=== PATIENT | male | born 1960 | race Caucasian/White ===

== ENCOUNTER 2016-12-07 22:01 | Emergency (ER) | payer MEDICARE, OTHER ==
--- NOTE | ~2016-12-07 | EKG ---
PATIENT: ASTRID CHAPMAN UNIT #: [id number] Ventricular Rate: 119 BPM Atrial Rate: 119 BPM P-R Interval: 126 ms QRS Duration: 78 ms Q-T Interval: 334 ms QTC Calculation(Bezet): 469 ms P Ben Wheeler: 54 degrees Calculated R Ben Wheeler: 56 degrees Calculated T Ben Wheeler: 38 degrees Diagnosis Line: Sinus tachycardia Diagnosis Line: Otherwise normal ECG Diagnosis Line: No previous ECGs available Diagnosis Line: Confirmed by SHAKIR CROWDER MD ([id number]) on 12/09/2016 Diagnosis Line: 2:15:00 PM INTERPRETING MD: LAKESHA MCMAHON
--- NOTE | ~2016-12-07 | CR72 ---
[facility] A Service of [facility] & [facility] RADIOLOGY TEXT RESULTS PATIENT: ASTRID CHAPMAN LOCATION: [facility] : 60 UNIT #: [id number] AGE: [address]: Georgie Allen MD SEX: M ORDER DR: [id number] [facility] [address] [place], [place] [address] [id number] MR#: [id number] Acc #: [id number] NAME: ASTRID CHAPMAN : 1960 SEX: M STUDY DATE/TIME: 12/07/2016 20:39 UNIT: [facility] ROOM: STUDY DESCRIPTION: CR Chest Single View Portable Attending Physician: Georgie Allen M.D. Ordering Physician: Rudy Palomares M.D. Primary Care Physician: Primary Care Physician No MEDICAL IMAGING REPORT This report is preliminary unless electronic signature is present EXAM Portable chest, 12/07/2016 HISTORY Shortness of air, cough, congestion and vomiting today. FINDINGS Mild elevation of the right hemidiaphragm. Low lung volumes. Dxvp-jb-okpuxtji bibasilar fibrosis or linear atelectasis. No airspace infiltrates. No pleural effusions. Lower cervical fusion hardware. IMPRESSION 1. No acute findings. No active disease. 2. Pbyv-yy-xirqaxzl elevation of the right hemidiaphragm. 3. Bibasilar linear atelectasis or scarring. Dictated by... Carlos Medina M.D. THIS IS AN ELECTRONICALLY VERIFIED REPORT Carlos Medina M.D. at 12/07/2016 11:29 PM KEKE/blake TD: 12/07/2016 22:38 JOB #: [id number] MEDICAL IMAGING REPORT Page 1 of 1 COPY
[2016-12-07 20:54] LABS: INFLUENZA A NEG (NEG); INFLUENZA B NEG (NEG)
[2016-12-07 21:05] LABS: BASOPHIL% 0.8 % (0-2.5); EOSINOPHIL# 0.1 X10e3 (0-0.7); EOSINOPHIL% 1.2 % (0.0-7.0); HEMATOCRIT 38.8 % (38.0-50.0); HEMOGLOBIN 12.4 gm/dL (13.0-16.0); LYMPHOCYTE# 0.5 X10e3 (1.0-3.5); LYMPHOCYTE% 7.5 % (17.0-45.0); MEAN CELL VOLUME 78.9 FL (83-96); MEAN CORPUSCULAR HEMOGLOBIN 25.2 PG (28-34); MEAN PLATELET VOLUME 7.6 FL (6.5-11.5); MONOCYTE# 1.2 X10e3 (0-1.0); MONOCYTE% 17.8 % (3.0-12.0); NEUTROPHIL# 4.8 X10e3 (1.5-7.1); NEUTROPHIL% 72.7 % (40-75); PLATELET COUNT 232 X10e3 (140-420); RED BLOOD COUNT 4.92 X10e (3.90-5.60); RED CELL DISTRIBUTION WIDTH 17.2 % (11.0-15.5); WHITE BLOOD COUNT 6.6 X10e3 (4.0-10.5)
[2016-12-07 21:08] LABS: DIFF IND NO
[2016-12-07 21:28] LABS: ALBUMIN SERUM 4.3 g/dL (3.5-5.0); BILIRUBIN, DIRECT 0.1 mg/dL (0.0-0.2); BILIRUBIN,INDIRECT 0.4 mg/dL (0.0-0.9); BILIRUBIN,TOTAL 0.5 mg/dL (0.2-2.0); CALCIUM SERUM 9.3 mg/dL (8.4-10.2); GLOM FILT RATE Estimated 83.8 mL/min (>60); POTASSIUM 3.5 mmol/L (3.5-5.1); PROTEIN TOTAL SERUM 7.6 g/dL (6.0-8.3)
[2016-12-07 21:32] LABS: POC - CKMB 4.5 ng/mL (0.0-7.9); POC - TROPONIN <0.05 ng/mL (<=0.05)
[~2016-12-07 22:01] MED LIST: ACETAMINOPHEN325 MG PO; ALB/IPRATROPIUM/1 E1 INH; ALBUTEROL MININEB INH; ALBUTEROL0.83 MG/ML IH; ALL DAY ALLERGY10 M3 PO; ALLERGY10 M2 PO; ASMANEX HFA13 GM IH; ASPIRIN81 M2 PO; ATIVAN PO; BACTRIM DS TABL1 TA1 PO; CEFTRIAXON2 G/PIGGYB IV; CYMBALTA PO; DESYREL50 M1 PO; FINASTERIDE5 MG PO; FLEXERIL10 MG PO; FLOMAX0.4 M1 PO; FLONASE 0.05% N16 GM; FLOVENT DI50 MCG/DIS IH; FLUOXETINE HCL20 M1 PO; FORADIL12 MCG NEB; HYDROCHLOROTHIA25 GM PO; HYDROCHLOROTHIA25 MG PO; HYDROCODONE-APA1 T54 PO; MELOXICAM15 MG PO; MONTELUKAST SOD10 MG PO; MS CONTIN PO; NEURONTIN PO; NITROFURANTOIN100 M3 PO; NORCO 10-325 TA1 TAB PO; PREDNISONE PO; PRILOSEC20 MG DOB; PRILOSEC20 MG PO; PRINIVIL40 MG PO; PROAIR; SARAFEM20 MG PO; SIMVASTATIN20 MG PO; SPIRIVA18 MCG INH; VIAGRA PO; ZESTRIL40 MG PO; [UNRECOGNIZED DRUG - OTHER] IH
[2017-05-14] MEDS ORDERED: MONTELUKAST SOD10 MG PO (15:36)
[2017-05-14] MEDS ORDERED: OMEPRAZOLE40 M1 PO (15:40)
[2017-05-14] MEDS ORDERED: PROAIR RESPICL90 MCG INH (15:46)
[2017-05-14] MEDS ORDERED: SPIRIVA18 MCG INH (15:50)
[2017-05-14] MEDS ORDERED: NORVASC10 MG PO (15:51)
[2017-05-14] MEDS ORDERED: INDOCIN50 MG PO (15:52)
[2017-05-14] MEDS ORDERED: ZOHYDRO ER10 M1 PO (15:55)
[2017-05-14] MEDS ORDERED: SARAFEM20 MG PO (15:56)
[2017-05-14] MEDS ORDERED: HCTZ PO (15:57)
[2017-05-14] MEDS ORDERED: ZESTRIL40 MG PO (15:57)
[2017-05-30] MEDS ORDERED: LIBRIUM PO (15:14)
[2017-05-30] MEDS ORDERED: CLONIDINE HCL0.1 MG PO (15:17)
[2017-05-30] MEDS ORDERED: OMEPRAZOLE40 M1 PO (15:20)
[2017-05-30] MEDS ORDERED: PROAIR HFA8.5 GM (15:24)
[2017-05-30] MEDS ORDERED: PULMICORT0.25 MG/2 (15:24)
[2017-05-30] MEDS ORDERED: MEDROL (15:25)
[2017-05-30] MEDS ORDERED: PEPCID PO (15:26)
[2017-05-30] MEDS ORDERED: PREDNISONE (15:27)
[2017-05-30] MEDS ORDERED: METOPROLOL TAR25 MG PO (15:28)
[2017-05-30] MEDS ORDERED: SARAFEM20 MG PO (15:29)
[2017-05-30] MEDS ORDERED: OXYCODONE HCL5 M1 PO (15:32)
== END 2016-12-08 01:07 | disposition home or self-care (01) ==
LOC: CED 22:01
PROVIDERS: Emergency Medicine
DX: R06.02 Shortness of breath (principal); R05 Cough; Z88.0 Allergy status to penicillin
CPT/HCPCS: 36415; 71010; 80048; 80076; 82553; 83605; 83880; 84484; 85025; 85379; 87040; 87804; 93005; 94640; 96361; 96374; 96375; 99284; J2405; J2930